=== PATIENT | female | born 1980 | race African-American/Black ===

== ENCOUNTER 2020-09-20 15:13 | Outpatient (CLI) | payer OTHER, SELFPAY ==
[2020-09-20 16:59] LABS: Free T4 Free Thyroxine 0.63 ng/mL (0.78-2.19)
== END 2020-09-20 15:14 | disposition home or self-care (01) ==
LOC: ANHWCLAB 15:15
PROVIDERS: Referring Provider Internal Medicine Endocrinology, Diabetes & Metabolism; Visit Provider Internal Medicine Endocrinology, Diabetes & Metabolism
DX: E03.9 Hypothyroidism, unspecified (principal)
CPT/HCPCS: 36415; 84439; 84443

== ENCOUNTER → 2020-11-09 06:43 | Outpatient (CLI) | payer OTHER, SELFPAY ==
[2020-11-09 16:16] LABS: SARS-CoV-2 RNA PCR Negative
== END ==
PROVIDERS: PCP Physician Assistant; Visit Provider Physician Assistant
DX: Z20.822 Contact with and (suspected) exposure to COVID-19 (principal)
CPT/HCPCS: C9803; U0003; U0005

== ENCOUNTER 2021-03-23 16:24 | Outpatient (CLI) | payer OTHER, SELFPAY ==
--- NOTE | ~2021-03-23 | CT_ITS ---
EXAMINATION: CT brain wo con DATE: 03/23/2021 16:53 INDICATION: Migraine headache, occipital area TECHNIQUE: Computed tomography (CT) of the head was performed without intravenous contrast. The mA wa s adjusted according to patient size. Iterative reconstruction technique was employed. Exam dose: 60 5.33 mGy-cm total exam DLP. COMPARISON: None FINDINGS: The cerebellar tonsils are abnormally low consistent with Arnold-Chiari 1 malformation. Con cook specialty nonemergent noncontrast MR cervical spine for further evaluation. No intracranial mass lesion or hemorrhage, midline shift or mass effect. No evidence of cerebrovascul ar accident. Normal aragon-white matter differentiation. Normal ventricular size. No subdural or epidur al hematoma is detected. The mastoid air cells and paranasal sinuses are normally developed and aerated. No fracture or bone destruction of the cranial vault. IMPRESSION: Abnormally low cerebellar tonsils consistent with Arnold-Chiari 1 malformation. Noncontrast MR cervical spine examination is recommended for further evaluation Reviewed, dictated and finalized at [facility]. Reviewed, dictated and finalized at location B.
== END 2021-03-23 16:25 | disposition home or self-care (01) ==
LOC: ANHIMG 16:28
PROVIDERS: PCP Physician Assistant; Visit Provider Physician Assistant
DX: G43.909 Migraine, unspecified, not intractable, without status migrainosus (principal); R93.0 Abnormal findings on diagnostic imaging of skull and head, not elsewhere classified
CPT/HCPCS: 70450

== ENCOUNTER 2021-04-28 13:55 | Outpatient (CLI) | payer OTHER, SELFPAY ==
--- NOTE | ~2021-04-28 | MR_ITS ---
EXAMINATION: MR cervical spine wo con EXAM DATE: 04/28/2021 15:00 INDICATION: Compression Of Brain. CT demonstrating Chiari malformation. Headaches lasting 3-4 days at a time. TECHNIQUE: Multi-sequential, multiplanar MR images of the cervical spine were obtained without contra st. Axial T2, axial T2 MERGE sequence. Sagittal T1, T2, T2 fat saturation images also obtained. Cor relation is made to Head CT 03/23/2021 FINDINGS: Both of the cerebellar tonsils are low-lying and meeting criteria for Chiari I malformatio n, with the right-sided tonsil measuring about 11 mm below the foramen magnum, and the left measuring about 10 mm. There is crowding of the brainstem and cerebellar tonsils, mass effect more apparent on the left. There is no edema within this, no cervical syrinx. There is mild diffuse cervical facet arthropathy, mild mid cervical uncovertebral joint arthropathy. The neural foramen and central canal are widely patent. The vertebral bodies are aligned in the AP di mension. Vertebral body and disc heights are well-maintained. There are no suspicious marrow signal a bnormalities. Paraspinal soft tissue is unremarkable. IMPRESSION: 1. Chiari I malformation. 2. Mild cervical arthropathy without stenosis. Reviewed, dictated and finalized at location A.
== END 2021-04-28 13:56 | disposition home or self-care (01) ==
PROVIDERS: PCP Physician Assistant; Visit Provider Physician Assistant
DX: G93.5 Compression of brain (principal)
CPT/HCPCS: 72141

== ENCOUNTER 2021-11-24 10:30 | Outpatient (CLI) | payer OTHER, SELFPAY ==
--- NOTE | ~2021-11-24 | XR_ITS ---
[id number] INDICATION: Cervicalgia TECHNIQUE: 4 views of the cervical spine. FINDINGS: 05/04/2014 The cervical spine is visualized to the cervicothoracic junction. There is no prevertebral soft tiss ue swelling, listhesis, or loss of vertebral body height. Intervertebral disc spaces are normal. Th e osseous central canal is patent. No displaced cervical spine fractures are identified. IMPRESSION: 1. No significant abnormality of the cervical spine. Reviewed, dictated and finalized at location A.
== END 2021-11-24 10:31 | disposition home or self-care (01) ==
PROVIDERS: PCP Physician Assistant; Visit Provider Physician Assistant
DX: M54.2 Cervicalgia (principal)
CPT/HCPCS: 72040

== ENCOUNTER 2022-08-08 14:59 | Outpatient (CLI) | payer OTHER, SELFPAY ==
[2022-08-08 19:01] LABS: Anion Gap 6 mmol/L (8-16); Blood Urea Nitrogen 8 mg/dL (7-17); Calcium 8.3 mg/dL (8.4-10.2); Carbon Dioxide 29 mmol/L (22-30); Chloride 105 mmol/L (98-107); Estimated Glomerular Filt Rate > 60; Glucose 100 mg/dL (65-110); HDL Direct 40 mg/dL; Potassium 3.9 mmol/L (3.4-5.0); Sodium 140 mmol/L (137-145)
[2022-08-08 19:11] LABS: LDL Cholesterol Direct 68 mg/dL
[2022-08-08 19:33] LABS: Thyroid Stimulating Hormone 0.152 uIU/mL (0.465-4.680)
[2022-08-08 19:36] LABS: Vitamin D 25 Hydroxy 27.5 ng/mL
[2022-08-08 20:00] LABS: Microalbumin Urine Random 12.1 mg/L (0-16.7)
[2022-08-08 20:01] LABS: Creatinine Urine 171.1 mg/dL; MALB Creatinine Ratio 7.1 mg/g (0-30)
== END 2022-08-08 15:00 | disposition home or self-care (01) ==
LOC: ANHWCLAB 15:01
PROVIDERS: Visit Provider Internal Medicine Endocrinology, Diabetes & Metabolism
DX: E03.9 Hypothyroidism, unspecified (principal); E11.9 Type 2 diabetes mellitus without complications; R79.89 Other specified abnormal findings of blood chemistry
CPT/HCPCS: 36415; 80048; 82043; 82306; 83718; 83721; 84439; 84443

== ENCOUNTER 2023-11-25 11:57 | Outpatient (CLI) | payer OTHER, SELFPAY ==
[2023-11-25 13:09] LABS: Cholesterol 105 mg/dL (0-200); HDL Direct 38 mg/dL; Microalbumin Urine Random 23.5 mg/L (0-16.7); Triglycerides 67 mg/dL (<150)
[2023-11-25 13:17] LABS: Creatinine Urine 318.7 mg/dL; MALB Creatinine Ratio 7.4 mg/g (0-30)
[2023-11-25 13:21] LABS: LDL Cholesterol Direct 52 mg/dL
[2023-11-25 14:05] LABS: Free T4 Free Thyroxine 0.82 ng/mL (0.78-2.19); Vitamin D 25 Hydroxy 41.6 ng/mL
== END 2023-11-25 11:58 | disposition home or self-care (01) ==
LOC: ANHWCLAB 11:58
PROVIDERS: Visit Provider Internal Medicine Endocrinology, Diabetes & Metabolism
DX: E03.9 Hypothyroidism, unspecified (principal); E55.9 Vitamin D deficiency, unspecified; E11.9 Type 2 diabetes mellitus without complications
CPT/HCPCS: 36415; 80061; 82043; 82306; 84439; 84443

== ENCOUNTER 2024-03-12 15:13 | Outpatient (CLI) | payer OTHER, SELFPAY ==
[2024-03-12 16:34] LABS: Prothrombin Time 13.3 Seconds (11.1-14.7)
[2024-03-12 18:22] LABS: HAV RESULT Negative (Negative); Hepatitis B Core IgM Result Negative (Negative); Hepatitis B Surface Antigen Negative (Negative)
[2024-03-12 18:32] LABS: Hepatitis B Surface Antibody > 1000.00 s/c
[2024-03-12 18:43] LABS: Hepatitis C Virus Antibody Negative (Negative)
[2024-03-12 21:54] LABS: Hepatitis B Surface Anti Res Positive
[2024-03-17 13:29] LABS: LKM 1 Antibody <=20.0 U (<=20.0)
[2024-03-17 22:08] LABS: Actin Antibody (IgG) <20 U (<20)
[2024-03-19 14:28] LABS: Alpha-1-Antitrypsin, QN 138 mg/dL (83-199); Ceruloplasmin 27 mg/dL (14-48)
[2024-03-20 09:34] LABS: Hepatitis B Core Ab Total NON-REACTIVE (NON-REACTIVE)
[2024-03-20 11:58] LABS: Hepatitis A Antibody Total NON-REACTIVE (NON-REACTIVE)
[2024-03-20 16:03] LABS: ALT 12 U/L (6-29); Alpha-2-Macroglobulin 200 mg/dL (106-279); Apolipoprotein A1 134 mg/dL (101-198); Fibrosis Score 0.06; Fibrosis Stage F0; GGT 20 U/L (3-55); Haptoglobin 98 mg/dL (43-212); Necroinflammat Act Grade A0; Reference ID 5124674; Total Bilirubin 0.1 mg/dL (0.2-1.2)
[2024-03-24 08:34] LABS: Mitochondrial (M2) Ab (IgG) <20.0 U
== END 2024-03-12 15:14 | disposition home or self-care (01) ==
PROVIDERS: PCP Physician Assistant; Visit Provider Nurse Practitioner
DX: R16.0 Hepatomegaly, not elsewhere classified (principal); K74.60 Unspecified cirrhosis of liver
CPT/HCPCS: 36415; 80074; 81596; 82103; 82390; 83520; 85610; 86038; 86039; 86364; 86376; 86704; 86706; 86708

== ENCOUNTER 2024-03-26 09:40 | Outpatient (CLI) | payer OTHER, SELFPAY ==
--- NOTE | ~2024-03-26 | US_ITS ---
Limited Abdominal Sonogram: Real-time sonographic imaging of the right upper quadrant was performed. Clinical History: Abnormal ultrasound, hepatomegaly Findings: The liver appears normal with no evidence of mass lesion or bile duct dilatation. Main por andrea vein demonstrates normal direction of flow. The gallbladder is well distended, and appears normal with no evidence of gallstone or wall thickening. The common bile duct measures 4 mm. The visualize d pancreas, aorta, and IVC are unremarkable. Simple right renal cyst noted. Impression: No significant abnormality seen. Reviewed, dictated and finalized at location M. Impression: No significant abnormality seen.
== END 2024-03-26 09:41 | disposition home or self-care (01) ==
LOC: ANHIMG 09:41
PROVIDERS: PCP Physician Assistant; Visit Provider Nurse Practitioner
DX: R16.0 Hepatomegaly, not elsewhere classified (principal)
CPT/HCPCS: 76705

== ENCOUNTER 2025-05-10 16:00 | Outpatient (RCR) | payer OTHER, SELFPAY ==
--- NOTE | 2025-02-10 14:42 | PCPTNOTE ---
pt arrived 10 minutes late to IE
--- NOTE | 2025-02-10 15:27 | OPREHPOC ---
Outpatient Therapy Plan of Care This is a Multidisciplinary Plan of Care that may contain components documented by all disciplines (PT, OT, and ST.) PT Problem 1 PT Problem #1 Knowledge Deficit PT Goal 1 Goal / Goal Update Patient to demonstrate independence with HEP for improved self-reliance of symptom management. Target Visit 6 PT Problem 2 PT Problem #2 Pain PT Goal 1 Goal / Goal Update 1. Patient to decrease subjective reports of pain to <5/10 at its worst for improved ADL tolerance. 2.Patient to report 50% improvement in quantity and quality of sleep due to neck pain/HAs. 3. Patient to report an improvement in radiating symptoms by 50% to increase ability to perform ADLs. Target Visit 12 PT Problem 3 PT Problem #3 Impaired Range of Motion PT Goal 1 Goal / Goal Update Patient to demonstrate an increase of cervical rotation AROM to >=60 degrees LOUISE to improve safety with driving. Target Visit 12 PT Problem 4 PT Problem #4 Impaired Endurance PT Goal 1 Goal / Goal Update Pt to improve deep neck flexor endurance to 10 sec hold to demonstrate improvements in postural related strength deficits. Target Visit 12
--- NOTE | 2025-02-10 15:27 | PTOPEVAL1 ---
Assessment and note entered by Sandra Boyd, PT Evaluation Information Assessment Status Evaluation ICD-10 Condition Codes (PT) Cervicalgia M54.2 Subjective Information Primary Complaint: Neck Pain History of current condition: Pt reports symptoms started over 2 months ago. She denies DESIREE., just started having severe pain that would make her it hard to move or lift her head. She has severe migraines that she receives Botox for. She gets injection sin her UTs as well. She still has HAs and now it feels more like tension HAs. She does have h/o Chiari malformation dx 4 years ago. She is a chiropractor and a massage therapist. She reports activities after a longer day at work increase her pain. She is also taking night classes that she is at a computer 2-3/hrs per day. She reports no changes to her pain with stretching her neck, yoga, no changes with medication/muscle relaxers or home modalities. Sxs made worse with: looking down while reading Sxs improved with: nothing CLOF: decreased concentration, disrupted sleep PLOF: no limitations Reported Pain Level Pain Score 2: Self Report Assessment PT Clinical Summary Pt is a 44 year old female who presents to physical therapy with a primary complaint of neck pain and HAs. Pt demonstrates poor deep neck flexor endurance, pain, HAs, decreased cervical mobility, abnormal posture, increased tissue tension, trigger points, and decreased flexibility that limit their ability to perform ADLs. Pt will benefit from skilled physical therapy to address the above listed deficits and return to PLOF. Held HEP this date due to time constraints as pt was late to her evaluation. Plan of Care Interventions Electrical Stimulation,Gait Training,Hot Pack/Cold Pack,Manual Therapy,Neuro Re-education,Patient/ Caregiver Education,Therapeutic Activities, Therapeutic Exercise,Self-Care/Home Management, Ultrasound PT Services Indicated Yes Treatment Frequency and 1-2x/wk for 12 sessions Duration These treatments will address the objective and functional deficits as defined above. The patient will be advanced safely and appropriately in order for the patient to progress towards his/her prior level of function. Additional exercises will be introduced and as well as a comprehensive home exercise program upon discharge, if needed, ?to ensure carryover of functional gains achieved in the clinic. This treatment plan has been reviewed and agreement upon by the patient.
--- NOTE | 2025-02-25 15:13 | PCPTNOTE ---
Pt canceled today due to illness.
--- NOTE | 2025-03-01 15:58 | PCPTNOTE ---
Pt canceled 15:45 appt at 15:56.
--- NOTE | 2025-03-18 16:08 | PCPTNOTE ---
Pt no showed visit today.
--- NOTE | 2025-04-07 16:43 | OPREHPOC ---
Outpatient Therapy Plan of Care This is a Multidisciplinary Plan of Care that may contain components documented by all disciplines (PT, OT, and ST.) PT Problem 1 PT Problem #1 Knowledge Deficit PT Goal 1 Goal / Goal Update Patient to demonstrate independence with HEP for improved self-reliance of symptom management. Target Visit 6 Progress Met PT Problem 2 PT Problem #2 Pain PT Goal 1 Goal / Goal Update 1. Patient to decrease subjective reports of pain to <5/10 at its worst for improved ADL tolerance. 2.Patient to report 50% improvement in quantity and quality of sleep due to neck pain/HAs. 3. Patient to report an improvement in radiating symptoms by 50% to increase ability to perform ADLs. update 04/07/2025: 1. cont with goal 2. met 3. 25% improvement, cont with goal Target Visit 12 Progress Partially Met PT Problem 3 PT Problem #3 Impaired Range of Motion PT Goal 1 Goal / Goal Update Patient to demonstrate an increase of cervical rotation AROM to >=60 degrees LOUISE to improve safety with driving. update 04/07/2025: Pt will demo active cervical motions to WNL or at most 5deg less than the normal ROM in order to improve functional mobility and safety. Target Visit 12 Progress Partially Met PT Problem 4 PT Problem #4 Impaired Endurance PT Goal 1 Goal / Goal Update Pt to improve deep neck flexor endurance to 10 sec hold to demonstrate improvements in postural related strength deficits. ---cont this goal Target Visit 12 Progress Not Met
--- NOTE | 2025-04-07 16:44 | PTOPPROG ---
Assessment and note entered by Tova Roberts, PT Re-evaluation Information Assessment Status Progress ICD-10 Condition Codes (PT) Cervicalgia M54.2 Subjective Information Pt reports feeling 40-50% better since starting therapy. However, she does not feel like she has a full ROM yet, pain continue to persist when looking down when reading or turning head a certain way. Increased feeling of tightness to bilat traps R > L. Assessment PT Clinical Summary Pt received 9 treatment sessions of therapy and demos slow but steady progress since evaluation in pain levels and ROM. However, she continue to demo less than WNL of active ROM to all motions of cervical spine, decreased stability and strength, postural deficits and muscle imbalance with R traps being hyper irritable which continue to affect safety with community navigation (driving). She will benefit from continued skilled PT to address above mentioned deficits and improve overall functional mobility and safety. Plan of Care Interventions Electrical Stimulation,Hot Pack/Cold Pack,Manual Therapy,Neuro Re-education,Patient/Caregiver Education,Therapeutic Activities,Therapeutic Exercise,Self-Care/Home Management,Ultrasound, Other Other Interventions Dry Needling PT Services Indicated Yes Treatment Frequency and 2x/wk x 8 visits Duration These treatments will address the objective and functional deficits as defined above. The patient will be advanced safely and appropriately in order for the patient to progress towards his/her prior level of function. Additional exercises will be introduced and as well as a comprehensive home exercise program upon discharge, if needed, ?to ensure carryover of functional gains achieved in the clinic. This treatment plan has been reviewed and agreement upon by the patient.
--- NOTE | 2025-04-29 14:35 | PCPTNOTE ---
Patient cancelled today's appointment.
== END 2025-05-11 23:59 | disposition home or self-care (01) ==
LOC: ANHPT 16:00
PROVIDERS: PCP Physician Assistant; Visit Provider Physician Assistant
DX: M54.2 Cervicalgia (principal); G89.29 Other chronic pain
CPT/HCPCS: 97035; 97110; 97140; 97162; 97530; 97750